=== PATIENT | male | born 2000 | race Caucasian/White ===

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

== ENCOUNTER → 2020-04-15 | Outpatient (CLI) | payer OTHER ==
[~2020-04-15] MED LIST: MOTR200T44 PO
--- NOTE | 2020-04-15 11:31 | REP ---
INDICATION: CHRONIC MIDLINE LOW BACK PAIN. COMPARISON: None. TECHNIQUE: Five views lumbosacral spine. FINDINGS: There is no compression fracture or malalignment. There is normal lumbar lordosis. There is no spondylolysis or spondylolisthesis. Disc spaces are well preserved. Posterior elements are intact. IMPRESSION: Negative lumbosacral spine series. <Electronically signed by Mohit Sullivan > 04/15/20 [id number]
== END ==
LOC: M WUC 11:04
PROVIDERS: ATTEND Nurse Practitioner Family
DX: M54.5 Low back pain (principal)
CPT/HCPCS: 72110; G0463

== ENCOUNTER 2024-11-23 15:42 | Emergency (ER) | payer BC, OTHER ==
[~2024-11-23] VITALS: Ht 177.8 cm; Wt 92.4 kg
[2024-11-23] MEDS: IPRATROPIUM 0.5 MG/ALBUTEROL 2.5 MG INH SOL UD 3 ML NEB PRN (17:27)
[2024-11-23 18:43] VITALS: TEMP 98.1
[2024-11-23 19:43] VITALS: BP 131/75
[2024-11-23] MEDS ORDERED: VENTAER INH (20:23)
[2024-11-23] MEDS ORDERED: PRED20TA PO (20:23)
[2024-11-23 20:28] VITALS: O2SAT 97
== END 2024-11-23 20:40 | disposition home or self-care (01) ==
LOC: EDBD 15:42 → M ED 16:17
DX: J20.9 Acute bronchitis, unspecified (principal); B34.1 Enterovirus infection, unspecified; R06.2 Wheezing; F17.290 Nicotine dependence, other tobacco product, uncomplicated; F12.10 Cannabis abuse, uncomplicated; Z79.1 Long term (current) use of non-steroidal anti-inflammatories (NSAID); Z79.51 Long term (current) use of inhaled steroids; Z79.52 Long term (current) use of systemic steroids
CPT/HCPCS: 71045; 87486; 87581; 87633; 87798; 93041; 94640; 94760; 96374; 99285; J2919